=== PATIENT | female | born 1970 | race Hispanic/Latino ===

== ENCOUNTER 2024-09-18 08:26 | Day surgery (SDC) | payer BC ==
[2024-09-14 14:29] VITALS: BMI 24.7
[2024-09-18] MEDS ORDERED: Famotidine/PF 20 mg/2ml Vial ONE (10:56)
[2024-09-18] MEDS ORDERED: Heparin 5,000 UNITS/ML VIAL ONE (10:57)
[2024-09-18] MEDS ORDERED: PROPOFOL 20 ML ONE (10:58)
[2024-09-18] MEDS ORDERED: CEFAZOLIN 2 GM VIAL ONE (11:07)
[2024-09-18] MEDS ORDERED: Ondansetron PF 4 MG/2 ML Vial ONE (11:34)
[2024-09-18] MEDS ORDERED: PHENYLEPHRINE-NS 100 MCG/ML 10 ML SYRINGE ONE (11:40)
[2024-09-18] MEDS ORDERED: Heparin 10,000 UNITS/ 10 ML VIAL ONE (12:04)
[2024-09-18] MEDS ORDERED: HYDROcodone/Acetaminophen 5/325 mg Tablet ONE ×2 (14:27→15:53)
[2024-09-19] MEDS ORDERED: Calcitriol 0.25 MCG CAP PO SCH (09:00)
[2024-09-19] MEDS ORDERED: Rosuvastatin 20 MG TAB PO SCH (09:00)
[2024-09-19] MEDS ORDERED: NIFEdipine XL 60 MG ER.TAB PO SCH (09:00)
[2024-09-19] MEDS ORDERED: Insulin Glargine 30 UNITS/0.3 ML VIAL SC SCH (09:00)
== END 2024-09-18 16:05 | disposition home or self-care (01) ==
LOC: SDC 08:26
PROVIDERS: ATTEND Surgery
PROC: 03180ZD Bypass Left Brachial Artery to Upper Arm Vein, Open Approach (ICD-10-PCS; principal; 2024-09-18)
DX: E11.22 Type 2 diabetes mellitus with diabetic chronic kidney disease (principal); N18.6 End stage renal disease; Z99.2 Dependence on renal dialysis
CPT/HCPCS: 36416; A6258; C1713; J1308; J1644; J2405; J2704; J2720; J3010; J3373

== ENCOUNTER 2024-10-14 05:00 | Inpatient (IN) | payer BC, SELFPAY ==
[2024-10-14 05:27] LABS: Actual Bicarbonate (HCO3v) 25.3 mEq/L (22-28); Base Excess 0.1 mEq/L (-2.0 to +3.0); Calcium, Ionized (venous) 1.03 mmol/L (1.16-1.32); Chloride (VBG) 91 mmol/L (98-106); Hematocrit-VBG 32 % (36.0-47.0); Hemoglobin (Hb) 10.8 g/dL (11.7-16.0); Potassium (VBG) 4.66 mmol/L (3.70-5.30); Sodium 128 mmol/L (133-146)
[2024-10-14] MEDS ORDERED: Cefepime 2 GM VIAL ONE (05:28)
[2024-10-14 05:31] LABS: #Basophils 0.08 10x3/uL (0.0-0.2); #Eosinophils 0.03 10x3/uL (0.0-0.7); #Monocytes 0.66 10x3/uL (0.11-0.59); #Neutrophils 10.24 10x3/uL (1.40-6.50); %Basophils 0.6 % (0.0-1.0); %Eosinophils 0.2 % (0.0-10.0); %Lymphocytes 11.4 % (21.0-51.0); %Monocytes 5.3 % (0.0-10.0); %Neutrophils 82.0 % (42.0-75.0); Hematocrit 28.9 % (36.0-47.0); Hemoglobin 9.5 g/dL (12.0-16.0); Mean Corpuscular Hemoglobin 27.5 pg (27.0-31.0); Mean Corpuscular Volume 83.8 fL (78.0-98.0); Platelet Count 324 10x3/uL (130-400); Red Blood Cell (RBC) Count 3.45 mill/uL (4.20-5.40); White Blood Cell (WBC) Count 12.50 10x3/uL (4.8-10.8)
[2024-10-14 05:46] LABS: INR-International Normal Ratio 1.1; PTT 34.2 sec (22.9-36.1); Prothrombin Time 13.9 sec (12.0-14.7)
[2024-10-14] MEDS ORDERED: Ondansetron PF 4 MG/2 ML Vial ONE ×2 (05:56→07:10)
[2024-10-14 06:26] LABS: Osmolality, Serum 302 mOsm/kg (275-295)
[2024-10-14 06:45] LABS: ALT (SGPT) 26 U/L (Less than 34); AST (SGOT) 41 U/L (11-34); Albumin 3.6 g/dL (3.1-4.5); Alkaline Phosphatase 267 U/L (40-110); Anion Gap 16 mmol/L (10-20); BUN (Urea Nitrogen) 27 mg/dL (9.8-20.1); Bilirubin, Total 0.5 mg/dL (0.3-1.2); Calc. Creatinine Clearance 0 mL/min (70-130); Calcium 8.8 mg/dL (7.8-10.44); Carbon Dioxide 25 mmol/L (22-29); Chloride 94 mmol/L (98-107); Globulin 3.8 g/dL (2.4-3.5); Glucose 503 mg/dL (70-105); Lipase 38 U/L (8-78); Magnesium 2.0 mg/dL (1.6-2.6); Potassium 4.8 mmol/L (3.5-5.1); Sodium 130 mmol/L (136-145)
[2024-10-14 07:53] LABS: HBSAB Concentration Less than 8.00 mIU/mL; Hep B Core Total Ab NONREACTIVE (NonReactive); Hep B Core Total Index 0.10 S/CO (0-0.79); Hep B Surf Ag NONREACTIVE S/CO (NonReactive); Hep C IgG Ab NONREACTIVE S/CO (NonReactive); Hep C Index 0.14 S/CO (0-0.79)
[2024-10-14] MEDS ORDERED: Heparin 10,000 UNITS/ 10 ML VIAL ONE (08:53)
[2024-10-14] MEDS ORDERED: Iopamidol 370 76% 100 ML VIAL ONE (13:05)
[2024-10-14] MEDS ORDERED: Glucagon 1 MG/ML KIT IM PRN (13:16)
[2024-10-14] MEDS ORDERED: Dextrose 50% Abboject 50 ML SYRINGE SLOW IVP PRN (13:16)
[2024-10-14] MEDS: EPOETIN ALFA-EPBX (ESRD) 10,000 UNITS/ML VIAL SC SCH (15:58)
[2024-10-14] MEDS: Heparin 5,000 UNITS/ML VIAL SC SCH (17:00)
[2024-10-14 19:22] LABS: Magnesium 2.0 mg/dL (1.6-2.6)
[2024-10-14] MEDS: Ondansetron PF 4 MG/2 ML Vial IVP PRN (20:52)
[2024-10-14] MEDS: Famotidine 20 MG TAB PO SCH (21:48)
[2024-10-15 05:53] LABS: Hematocrit 26.0 % (36.0-47.0); Hemoglobin 8.0 g/dL (12.0-16.0); Mean Corpuscular Hemoglobin 26.9 pg (27.0-31.0); Mean Corpuscular Volume 87.5 fL (78.0-98.0); Platelet Count 303 10x3/uL (130-400); Red Blood Cell (RBC) Count 2.97 mill/uL (4.20-5.40); White Blood Cell (WBC) Count 11.04 10x3/uL (4.8-10.8)
[2024-10-15 06:17] LABS: ALT (SGPT) 17 U/L (Less than 34); AST (SGOT) 30 U/L (11-34); Albumin 2.9 g/dL (3.1-4.5); Alkaline Phosphatase 193 U/L (40-110); Anion Gap 17 mmol/L (10-20); BUN (Urea Nitrogen) 20 mg/dL (9.8-20.1); Bilirubin, Total 0.3 mg/dL (0.3-1.2); Calc. Creatinine Clearance 24 mL/min (70-130); Calcium 8.9 mg/dL (7.8-10.44); Carbon Dioxide 27 mmol/L (22-29); Chloride 98 mmol/L (98-107); Globulin 3.4 g/dL (2.4-3.5); Glucose 199 mg/dL (70-105); Macrocytosis SLIGHT = 6-15 cells HPF (0-5); Magnesium 2.2 mg/dL (1.6-2.6); Ovalocytes SLIGHT = 2-5 cells HPF (0-1); Platelet Adequacy Comment Platelets Normal; Poikilocytosis SLIGHT = 6-15 cells HPF (0-5); Polychromasia SLIGHT = 2-3 cells HPF (0-2); Potassium 4.1 mmol/L (3.5-5.1); Schistocytes SLIGHT = 2-5 cells HPF (0-1); Smudge Cells 15.0 %; Sodium 138 mmol/L (136-145)
[2024-10-15] MEDS ORDERED: Heparin 10,000 UNITS/ 10 ML VIAL ONE (11:04)
[2024-10-15] MEDS: Mupirocin 1 GM TUBE TP SCH (13:18)
[2024-10-15] MEDS: Calcitriol 0.25 MCG CAP PO SCH (13:18)
[2024-10-15] MEDS: Insulin Glargine 30 UNITS/0.3 ML VIAL SC SCH (13:18)
[2024-10-15] MEDS: NIFEdipine XL 60 MG ER.TAB PO SCH (13:19)
[2024-10-15] MEDS: Rosuvastatin 20 MG TAB PO SCH (13:19)
[2024-10-15] MEDS ORDERED: Communication Order-Pharmacy FS SCH (17:30)
[2024-10-15] MEDS: Carvedilol 6.25 MG TAB PO SCH (18:13)
[2024-10-15] MEDS: Famotidine 20 MG TAB PO SCH (20:13)
[2024-10-16 04:40] LABS: Hematocrit 26.9 % (36.0-47.0); Hemoglobin 8.5 g/dL (12.0-16.0); Mean Corpuscular Hemoglobin 27.7 pg (27.0-31.0); Mean Corpuscular Volume 87.6 fL (78.0-98.0); Platelet Count 323 10x3/uL (130-400); Red Blood Cell (RBC) Count 3.07 mill/uL (4.20-5.40); White Blood Cell (WBC) Count 10.56 10x3/uL (4.8-10.8)
[2024-10-16 05:09] LABS: Nucleated RBC (Manual Ct) 1 % (0); Platelet Adequacy Comment Platelets Normal; Polychromasia SLIGHT = 2-3 cells HPF (0-2)
[2024-10-16 05:14] LABS: ALT (SGPT) 17 U/L (Less than 34); AST (SGOT) 26 U/L (11-34); Albumin 2.9 g/dL (3.1-4.5); Alkaline Phosphatase 175 U/L (40-110); Anion Gap 6 mmol/L (10-20); BUN (Urea Nitrogen) 18 mg/dL (9.8-20.1); Bilirubin, Total 0.3 mg/dL (0.3-1.2); Calc. Creatinine Clearance 15 mL/min (70-130); Calcium 8.5 mg/dL (7.8-10.44); Carbon Dioxide 28 mmol/L (22-29); Cardiac Risk 4.0 (Less than 4.5); Chloride 105 mmol/L (98-107); Cholesterol 177 mg/dl (< 200 Desired); Globulin 3.4 g/dL (2.4-3.5); Glucose 80 mg/dL (70-105); HDL Cholesterol 44 mg/dL (>60 Neg Risk); LDL Cholesterol, Calculated 100 mg/dL; Potassium 3.8 mmol/L (3.5-5.1); Sodium 135 mmol/L (136-145); Triglycerides 163 mg/dL (Less than 150)
[2024-10-16] MEDS ORDERED: EPINEPHrine 1 MG/10 ML Abboject SYRINGE ONE (08:18)
[2024-10-16] MEDS ORDERED: hydrALAZINE 20 MG/ML VIAL ONE (08:18)
[2024-10-16] MEDS ORDERED: Adenosine 6 mg (2 mL) VIAL ONE (08:18)
[2024-10-16] MEDS ORDERED: Nitroglycerin 50 MG/250 ML BOT 0 ML ONE (08:19)
[2024-10-16] MEDS ORDERED: Lidocaine 1% (PF) 30 ML VIAL ONE (08:19)
[2024-10-16] MEDS ORDERED: PHENYLEPHRINE-NS 100 MCG/ML 10 ML SYRINGE ONE (08:19)
[2024-10-16] MEDS ORDERED: Heparin 10,000 UNITS/ 10 ML VIAL ONE (08:19)
[2024-10-16] MEDS ORDERED: Iopamidol 370 76% 100 ML VIAL ONE (15:21)
[2024-10-16] MEDS: Aspirin 81 mg Enteric Coated Tablet PO SCH (16:37)
[2024-10-16] MEDS: Rosuvastatin 10 MG TAB PO SCH (16:38)
[2024-10-16] MEDS: Communication Order-Pharmacy FS ONE (16:45)
[2024-10-16] MEDS: EPOETIN ALFA-EPBX (ESRD) 10,000 UNITS/ML VIAL SC SCH (17:31)
[2024-10-17] MEDS: Acetaminophen 325 MG TAB PO PRN (01:51)
[2024-10-17 05:24] LABS: #Basophils 0.07 10x3/uL (0.0-0.2); #Eosinophils 0.16 10x3/uL (0.0-0.7); #Monocytes 0.72 10x3/uL (0.11-0.59); #Neutrophils 4.54 10x3/uL (1.40-6.50); %Basophils 0.8 % (0.0-1.0); %Eosinophils 1.9 % (0.0-10.0); %Lymphocytes 34.2 % (21.0-51.0); %Monocytes 8.6 % (0.0-10.0); %Neutrophils 54.0 % (42.0-75.0); Hematocrit 23.9 % (36.0-47.0); Hemoglobin 7.6 g/dL (12.0-16.0); Mean Corpuscular Hemoglobin 27.4 pg (27.0-31.0); Mean Corpuscular Volume 86.3 fL (78.0-98.0); Platelet Count 320 10x3/uL (130-400); Red Blood Cell (RBC) Count 2.77 mill/uL (4.20-5.40); White Blood Cell (WBC) Count 8.41 10x3/uL (4.8-10.8)
[2024-10-17 05:50] LABS: ALT (SGPT) 14 U/L (Less than 34); AST (SGOT) 21 U/L (11-34); Albumin 2.6 g/dL (3.1-4.5); Alkaline Phosphatase 142 U/L (40-110); Anion Gap 14 mmol/L (10-20); BUN (Urea Nitrogen) 29 mg/dL (9.8-20.1); Bilirubin, Total 0.2 mg/dL (0.3-1.2); Calc. Creatinine Clearance 10 mL/min (70-130); Calcium 8.1 mg/dL (7.8-10.44); Carbon Dioxide 25 mmol/L (22-29); Chloride 95 mmol/L (98-107); Globulin 3.2 g/dL (2.4-3.5); Glucose 111 mg/dL (70-105); Potassium 3.9 mmol/L (3.5-5.1); Sodium 130 mmol/L (136-145)
[2024-10-17 09:00] LABS: Iron 40 ug/dL (50-170); Iron Binding Capacity, Total 186 mcg/dL (265-497)
[2024-10-17] MEDS: Insulin Glargine 30 UNITS/0.3 ML VIAL SC SCH (09:51)
[2024-10-17] MEDS ORDERED: Heparin 10,000 UNITS/ 10 ML VIAL ONE (11:07)
[2024-10-17] MEDS: Carvedilol 6.25 MG TAB PO SCH (16:36)
[2024-10-18 05:28] LABS: #Basophils 0.08 10x3/uL (0.0-0.2); #Eosinophils 0.22 10x3/uL (0.0-0.7); #Monocytes 0.70 10x3/uL (0.11-0.59); #Neutrophils 4.20 10x3/uL (1.40-6.50); %Basophils 1.0 % (0.0-1.0); %Eosinophils 2.7 % (0.0-10.0); %Lymphocytes 35.7 % (21.0-51.0); %Monocytes 8.6 % (0.0-10.0); %Neutrophils 51.5 % (42.0-75.0); Hematocrit 36.3 % (36.0-47.0); Hemoglobin 11.7 g/dL (12.0-16.0); Mean Corpuscular Hemoglobin 27.9 pg (27.0-31.0); Mean Corpuscular Volume 86.4 fL (78.0-98.0); Platelet Count 301 10x3/uL (130-400); Red Blood Cell (RBC) Count 4.20 mill/uL (4.20-5.40); White Blood Cell (WBC) Count 8.15 10x3/uL (4.8-10.8)
[2024-10-18 06:15] LABS: ALT (SGPT) 13 U/L (Less than 34); AST (SGOT) 23 U/L (11-34); Albumin 3.0 g/dL (3.1-4.5); Alkaline Phosphatase 178 U/L (40-110); Anion Gap 13 mmol/L (10-20); BUN (Urea Nitrogen) 20 mg/dL (9.8-20.1); Bilirubin, Total 0.4 mg/dL (0.3-1.2); Calc. Creatinine Clearance 11 mL/min (70-130); Calcium 8.6 mg/dL (7.8-10.44); Carbon Dioxide 27 mmol/L (22-29); Chloride 95 mmol/L (98-107); Globulin 3.7 g/dL (2.4-3.5); Glucose 143 mg/dL (70-105); Magnesium 2.1 mg/dL (1.6-2.6); Potassium 3.3 mmol/L (3.5-5.1); Sodium 132 mmol/L (136-145)
[2024-10-18] MEDS: Carvedilol 6.25 MG TAB PO SCH (16:12)
[2024-10-18] MEDS: Senokot S 8.6-50 MG TAB PO PRN (17:45)
[2024-10-19] MEDS: Carvedilol 6.25 MG TAB PO SCH (05:52)
[2024-10-19 06:35] LABS: #Basophils 0.08 10x3/uL (0.0-0.2); #Eosinophils 0.27 10x3/uL (0.0-0.7); #Monocytes 0.88 10x3/uL (0.11-0.59); #Neutrophils 4.07 10x3/uL (1.40-6.50); %Basophils 1.0 % (0.0-1.0); %Eosinophils 3.5 % (0.0-10.0); %Lymphocytes 30.8 % (21.0-51.0); %Monocytes 11.3 % (0.0-10.0); %Neutrophils 52.5 % (42.0-75.0); Hematocrit 35.9 % (36.0-47.0); Hemoglobin 11.6 g/dL (12.0-16.0); Mean Corpuscular Hemoglobin 28.2 pg (27.0-31.0); Mean Corpuscular Volume 87.3 fL (78.0-98.0); Platelet Count 297 10x3/uL (130-400); Red Blood Cell (RBC) Count 4.11 mill/uL (4.20-5.40); White Blood Cell (WBC) Count 7.76 10x3/uL (4.8-10.8)
[2024-10-19 06:49] LABS: ALT (SGPT) 12 U/L (Less than 34); AST (SGOT) 23 U/L (11-34); Albumin 2.9 g/dL (3.1-4.5); Alkaline Phosphatase 147 U/L (40-110); Anion Gap 14 mmol/L (10-20); BUN (Urea Nitrogen) 33 mg/dL (9.8-20.1); Bilirubin, Total 0.4 mg/dL (0.3-1.2); Calc. Creatinine Clearance 8 mL/min (70-130); Calcium 8.9 mg/dL (7.8-10.44); Carbon Dioxide 23 mmol/L (22-29); Chloride 100 mmol/L (98-107); Globulin 3.3 g/dL (2.4-3.5); Glucose 82 mg/dL (70-105); Magnesium 2.3 mg/dL (1.6-2.6); Potassium 4.0 mmol/L (3.5-5.1); Sodium 133 mmol/L (136-145)
[2024-10-19] MEDS ORDERED: PHENYLEPHRINE-NS 100 MCG/ML 10 ML SYRINGE ONE ×2 (07:06→07:16)
[2024-10-19] MEDS ORDERED: PROPOFOL 20 ML ONE ×2 (07:14→10:58)
[2024-10-19] MEDS ORDERED: fentaNYL PF 100 MCG/2 ML SYRINGE ONE ×3 (07:14→10:58)
[2024-10-19] MEDS ORDERED: Rocuronium Bromide 10 MG/ML (10ML VIAL) ONE ×2 (07:15→09:08)
[2024-10-19] MEDS ORDERED: Lidocaine 1% PF 5 ML VIAL ONE (07:15)
[2024-10-19] MEDS ORDERED: Etomidate 40 MG (20 mL) VIAL ONE (07:16)
[2024-10-19] MEDS ORDERED: CEFAZOLIN 1 GM VIAL ONE (08:23)
[2024-10-19] MEDS ORDERED: Calcium Chloride 1 GM/10 ML Abboject SYRINGE ONE (08:25)
[2024-10-19] MEDS ORDERED: Thrombin 5000 UNITS/5 ML VIAL ONE (08:25)
[2024-10-19] MEDS ORDERED: Heparin 5,000 UNITS/ML VIAL ONE (08:25)
[2024-10-19] MEDS ORDERED: Cardioplegic Soln 1,000 ML BAG ONE (08:25)
[2024-10-19] MEDS ORDERED: Heparin 30,000 units/30 ml VIAL ONE (08:25)
[2024-10-19] MEDS ORDERED: NOREPINEPHRINE 8 MG/250 ML-D5W 250 ML ONE (10:52)
[2024-10-19] MEDS: Insulin Glargine 30 UNITS/0.3 ML VIAL SC SCH (11:15)
[2024-10-19] MEDS ORDERED: Potassium Chloride 20 MEQ (100 mL) BAG IVPB PRN (11:59)
[2024-10-19] MEDS ORDERED: Guaifenesin DM 100-10/5 ML UDCUP PO PRN (11:59)
[2024-10-19] MEDS ORDERED: Bisacodyl 10 MG SUPP PR PRN (11:59)
[2024-10-19] MEDS ORDERED: niCARdipine 25 MG in Sodium Chloride 0.9% 250 ML 250 ML IVPB PRN (11:59)
[2024-10-19] MEDS ORDERED: Albumin 5% 12.5 GM (250 mL) BOT IVPB PRN (11:59)
[2024-10-19] MEDS ORDERED: Mag-Al 1200 mg/1200 mg/30 ML UDCUP PO PRN (11:59)
[2024-10-19] MEDS ORDERED: hydrALAZINE 20 MG/ML VIAL SLOW IVP PRN (11:59)
[2024-10-19] MEDS ORDERED: NOREPINEPHRINE 8 MG/250 ML-D5W 250 ML IVPB PRN (11:59)
[2024-10-19 12:07] LABS: ALV-art Gradient 306.175 mmHg (0-20); Actual Bicarbonate (HCO3a) 21.1 mEq/L (22-28); Base Excess (BEa) -2.8 mEq/L (-2.0 to +3.0); CO2 Tension 33.3 mmHg (35.0-45.0); Calcium, Ionized (arterial) 1.09 mmol/L (1.12-1.30); Hematocrit-ABG 33 % (36.0-47.0); Hemoglobin (Hb) 11.2 g/dL (12.0-16.0); O2 Tension (PaO2), arterial 80.0 mmHg (80.0-100.0); Potassium - ABG Lab 4.57 mmol/L (3.70-5.30); Puncture Site Arterial Line; pH, Arterial 7.419 (7.35-7.45)
[2024-10-19 12:12] LABS: #Basophils 0.05 10x3/uL (0.0-0.2); #Eosinophils 0.17 10x3/uL (0.0-0.7); #Monocytes 0.69 10x3/uL (0.11-0.59); #Neutrophils 10.08 10x3/uL (1.40-6.50); %Basophils 0.4 % (0.0-1.0); %Eosinophils 1.4 % (0.0-10.0); %Lymphocytes 10.9 % (21.0-51.0); %Monocytes 5.5 % (0.0-10.0); %Neutrophils 80.8 % (42.0-75.0); Hematocrit 30.3 % (36.0-47.0); Hemoglobin 10.1 g/dL (12.0-16.0); Mean Corpuscular Hemoglobin 28.8 pg (27.0-31.0); Mean Corpuscular Volume 86.3 fL (78.0-98.0); Platelet Count 215 10x3/uL (130-400); Red Blood Cell (RBC) Count 3.51 mill/uL (4.20-5.40); White Blood Cell (WBC) Count 12.47 10x3/uL (4.8-10.8)
[2024-10-19] MEDS: Aspirin Chewable 81 MG TAB PO SCH (12:15)
[2024-10-19] MEDS ORDERED: INSULIN REGULAR IN 0.9 % NACL 100 UNITS in Premix 1 BAG IVPB SCH (12:15)
[2024-10-19] MEDS ORDERED: Dextrose 50% Abboject 50 ML SYRINGE SLOW IVP PRN (12:15)
[2024-10-19] MEDS: Acetaminophen 325 MG TAB PO SCH (12:15)
[2024-10-19] MEDS ORDERED: Glucagon 1 MG/ML KIT SC PRN (12:15)
[2024-10-19] MEDS: Albumin 5% 12.5 GM (250 mL) BOT IVPB PRN (12:15)
[2024-10-19] MEDS: Magnesium 2 GM/50 ML(in water) 2 GM in Premix 1 BAG IVPB SCH (12:17)
[2024-10-19] MEDS: Post-Op Insulin Drip Protocol IVPB ONE (12:28)
[2024-10-19 12:32] LABS: Anion Gap 17 mmol/L (10-20); BUN (Urea Nitrogen) 29 mg/dL (9.8-20.1); Calc. Creatinine Clearance 9 mL/min (70-130); Calcium 8.0 mg/dL (7.8-10.44); Carbon Dioxide 19 mmol/L (22-29); Chloride 104 mmol/L (98-107); Glucose 172 mg/dL (70-105); INR-International Normal Ratio 1.2; Potassium 4.7 mmol/L (3.5-5.1); Prothrombin Time 15.0 sec (12.0-14.7); Sodium 135 mmol/L (136-145)
[2024-10-19 12:33] LABS: PTT 40.2 sec (22.9-36.1)
[2024-10-19 16:58] LABS: Hematocrit 32.1 % (36.0-47.0); Hemoglobin 10.5 g/dL (12.0-16.0)
[2024-10-19] MEDS ORDERED: Carvedilol 6.25 MG TAB PO SCH (17:00)
[2024-10-19 17:10] LABS: Potassium 4.5 mmol/L (3.5-5.1)
[2024-10-19] MEDS: Ondansetron PF 4 MG/2 ML Vial IVP PRN (20:23)
[2024-10-19] MEDS: Famotidine/PF 20 mg/2ml Vial SLOW IVP SCH (20:23)
[2024-10-19 20:32] LABS: Actual Bicarbonate (HCO3a) 18.7 mEq/L (22-28); Base Excess (BEa) -5.5 mEq/L (-2.0 to +3.0); CO2 Tension 32.2 mmHg (35.0-45.0); Calcium, Ionized (arterial) 1.14 mmol/L (1.12-1.30); Hematocrit-ABG 35 % (36.0-47.0); Hemoglobin (Hb) 11.8 g/dL (12.0-16.0); O2 Tension (PaO2), arterial 83.8 mmHg (80.0-100.0); Potassium - ABG Lab 4.48 mmol/L (3.70-5.30); pH, Arterial 7.381 (7.35-7.45)
[2024-10-19 20:33] LABS: Puncture Site Arterial Line
[2024-10-19 20:34] LABS: ALV-art Gradient 161.150 mmHg (0-20)
[2024-10-20 04:15] LABS: #Basophils 0.04 10x3/uL (0.0-0.2); #Eosinophils Less than 0.03 10x3/uL (0.0-0.7); #Monocytes 0.99 10x3/uL (0.11-0.59); #Neutrophils 10.76 10x3/uL (1.40-6.50); %Basophils 0.3 % (0.0-1.0); %Eosinophils 0.0 % (0.0-10.0); %Lymphocytes 9.2 % (21.0-51.0); %Monocytes 7.6 % (0.0-10.0); %Neutrophils 82.1 % (42.0-75.0); Hematocrit 32.6 % (36.0-47.0); Hemoglobin 10.4 g/dL (12.0-16.0); Mean Corpuscular Hemoglobin 28.3 pg (27.0-31.0); Mean Corpuscular Volume 88.8 fL (78.0-98.0); Platelet Count 247 10x3/uL (130-400); Red Blood Cell (RBC) Count 3.67 mill/uL (4.20-5.40); White Blood Cell (WBC) Count 13.10 10x3/uL (4.8-10.8)
[2024-10-20 04:44] LABS: ALT (SGPT) 7 U/L (Less than 34); AST (SGOT) 36 U/L (11-34); Albumin 3.0 g/dL (3.1-4.5); Alkaline Phosphatase 105 U/L (40-110); Anion Gap 20 mmol/L (10-20); BUN (Urea Nitrogen) 35 mg/dL (9.8-20.1); Bilirubin, Total 0.2 mg/dL (0.3-1.2); Calc. Creatinine Clearance 8 mL/min (70-130); Calcium 8.3 mg/dL (7.8-10.44); Carbon Dioxide 19 mmol/L (22-29); Chloride 104 mmol/L (98-107); Globulin 2.6 g/dL (2.4-3.5); Glucose 117 mg/dL (70-105); Magnesium 3.7 mg/dL (1.6-2.6); Potassium 5.5 mmol/L (3.5-5.1); Sodium 137 mmol/L (136-145)
[2024-10-20] MEDS: Aspirin 325 MG TAB PO SCH (07:41)
[2024-10-20] MEDS: HYDROcodone/Acetaminophen 5/325 mg Tablet PO PRN ×2 (07:41→16:46)
[2024-10-20] MEDS: Magnesium 2 GM/50 ML(in water) 2 GM in Premix 1 BAG IVPB SCH (09:24)
[2024-10-20] MEDS ORDERED: Heparin 10,000 UNITS/ 10 ML VIAL ONE (09:46)
[2024-10-20] MEDS ORDERED: Insulin Glargine 30 UNITS/0.3 ML VIAL SC PRN (12:14)
[2024-10-20] MEDS: Albumin 5% 12.5 GM (250 mL) BOT IVPB SCH ×3 (14:51→21:25)
[2024-10-20] MEDS: Heparin 5,000 UNITS/ML VIAL SC SCH (16:08)
[2024-10-20] MEDS ORDERED: NOREPINEPHRINE 8 MG/250 ML-D5W 250 ML IVPB SCH (22:15)
[2024-10-21 04:05] LABS: #Basophils 0.07 10x3/uL (0.0-0.2); #Eosinophils 0.04 10x3/uL (0.0-0.7); #Monocytes 1.77 10x3/uL (0.11-0.59); #Neutrophils 10.95 10x3/uL (1.40-6.50); %Basophils 0.5 % (0.0-1.0); %Eosinophils 0.3 % (0.0-10.0); %Lymphocytes 10.3 % (21.0-51.0); %Monocytes 12.3 % (0.0-10.0); %Neutrophils 76.1 % (42.0-75.0); Hematocrit 29.5 % (36.0-47.0); Hemoglobin 9.1 g/dL (12.0-16.0); Mean Corpuscular Hemoglobin 28.2 pg (27.0-31.0); Mean Corpuscular Volume 91.3 fL (78.0-98.0); Platelet Count 223 10x3/uL (130-400); Red Blood Cell (RBC) Count 3.23 mill/uL (4.20-5.40); White Blood Cell (WBC) Count 14.38 10x3/uL (4.8-10.8)
[2024-10-21 04:38] LABS: ALT (SGPT) Less than 7 U/L (Less than 34); AST (SGOT) 45 U/L (11-34); Albumin 3.4 g/dL (3.1-4.5); Alkaline Phosphatase 195 U/L (40-110); Anion Gap 17 mmol/L (10-20); BUN (Urea Nitrogen) 24 mg/dL (9.8-20.1); Bilirubin, Total 0.4 mg/dL (0.3-1.2); Calc. Creatinine Clearance 12 mL/min (70-130); Calcium 8.4 mg/dL (7.8-10.44); Carbon Dioxide 25 mmol/L (22-29); Chloride 101 mmol/L (98-107); Globulin 2.4 g/dL (2.4-3.5); Glucose 148 mg/dL (70-105); Magnesium 2.7 mg/dL (1.6-2.6); Potassium 4.4 mmol/L (3.5-5.1); Sodium 139 mmol/L (136-145)
[2024-10-21 05:06] VITALS: BMI 21.8
[2024-10-21] MEDS: Acetaminophen 500 MG TAB PO SCH (12:12)
[2024-10-21] MEDS: Senokot S 8.6-50 MG TAB PO SCH (12:13)
[2024-10-21] MEDS: EPOETIN ALFA-EPBX (ESRD) 10,000 UNITS/ML VIAL SC SCH (15:21)
[2024-10-22 04:13] LABS: #Basophils 0.06 10x3/uL (0.0-0.2); #Eosinophils 0.03 10x3/uL (0.0-0.7); #Monocytes 1.20 10x3/uL (0.11-0.59); #Neutrophils 9.91 10x3/uL (1.40-6.50); %Basophils 0.5 % (0.0-1.0); %Eosinophils 0.2 % (0.0-10.0); %Lymphocytes 14.8 % (21.0-51.0); %Monocytes 9.1 % (0.0-10.0); %Neutrophils 74.9 % (42.0-75.0); Hematocrit 28.2 % (36.0-47.0); Hemoglobin 8.6 g/dL (12.0-16.0); Mean Corpuscular Hemoglobin 27.9 pg (27.0-31.0); Mean Corpuscular Volume 91.6 fL (78.0-98.0); Platelet Count 215 10x3/uL (130-400); Red Blood Cell (RBC) Count 3.08 mill/uL (4.20-5.40); White Blood Cell (WBC) Count 13.21 10x3/uL (4.8-10.8)
[2024-10-22 04:33] LABS: ALT (SGPT) 8 U/L (Less than 34); AST (SGOT) 59 U/L (11-34); Albumin 2.8 g/dL (3.1-4.5); Alkaline Phosphatase 222 U/L (40-110); Anion Gap 17 mmol/L (10-20); BUN (Urea Nitrogen) 42 mg/dL (9.8-20.1); Bilirubin, Total 0.3 mg/dL (0.3-1.2); Calc. Creatinine Clearance 9 mL/min (70-130); Calcium 8.3 mg/dL (7.8-10.44); Carbon Dioxide 23 mmol/L (22-29); Chloride 98 mmol/L (98-107); Globulin 2.9 g/dL (2.4-3.5); Glucose 117 mg/dL (70-105); Magnesium 2.8 mg/dL (1.6-2.6); Potassium 4.9 mmol/L (3.5-5.1); Sodium 133 mmol/L (136-145)
[2024-10-22] MEDS ORDERED: Heparin 10,000 UNITS/ 10 ML VIAL ONE (09:04)
[2024-10-22 13:39] VITALS: BMI 22.4
[2024-10-22] MEDS ORDERED: Insulin Glargine 30 UNITS/0.3 ML VIAL SC SCH (21:00)
[2024-10-22] MEDS: Insulin Glargine 30 UNITS/0.3 ML VIAL SC SCH (21:55)
[2024-10-22] MEDS: Famotidine 20 MG TAB PO SCH (21:56)
[2024-10-23 03:40] LABS: #Basophils 0.08 10x3/uL (0.0-0.2); #Eosinophils 0.18 10x3/uL (0.0-0.7); #Monocytes 1.05 10x3/uL (0.11-0.59); #Neutrophils 6.57 10x3/uL (1.40-6.50); %Basophils 0.8 % (0.0-1.0); %Eosinophils 1.7 % (0.0-10.0); %Lymphocytes 25.0 % (21.0-51.0); %Monocytes 9.9 % (0.0-10.0); %Neutrophils 61.9 % (42.0-75.0); Hematocrit 29.2 % (36.0-47.0); Hemoglobin 9.1 g/dL (12.0-16.0); Mean Corpuscular Hemoglobin 28.3 pg (27.0-31.0); Mean Corpuscular Volume 91.0 fL (78.0-98.0); Platelet Count 271 10x3/uL (130-400); Red Blood Cell (RBC) Count 3.21 mill/uL (4.20-5.40); White Blood Cell (WBC) Count 10.60 10x3/uL (4.8-10.8)
[2024-10-23 03:55] LABS: ALT (SGPT) 8 U/L (Less than 34); AST (SGOT) 53 U/L (11-34); Albumin 2.9 g/dL (3.1-4.5); Alkaline Phosphatase 228 U/L (40-110); Anion Gap 14 mmol/L (10-20); BUN (Urea Nitrogen) 22 mg/dL (9.8-20.1); Bilirubin, Total 0.3 mg/dL (0.3-1.2); Calc. Creatinine Clearance 13 mL/min (70-130); Calcium 8.4 mg/dL (7.8-10.44); Carbon Dioxide 26 mmol/L (22-29); Chloride 100 mmol/L (98-107); Globulin 3.1 g/dL (2.4-3.5); Glucose 89 mg/dL (70-105); Magnesium 2.4 mg/dL (1.6-2.6); Potassium 3.9 mmol/L (3.5-5.1); Sodium 136 mmol/L (136-145)
[2024-10-23] MEDS: Mupirocin 1 GM TUBE TP SCH (21:05)
[2024-10-23] MEDS: Insulin Glargine 30 UNITS/0.3 ML VIAL SC SCH (21:05)
[2024-10-24 04:37] LABS: ALT (SGPT) Less than 7 U/L (Less than 34); AST (SGOT) 40 U/L (11-34); Albumin 2.7 g/dL (3.1-4.5); Alkaline Phosphatase 251 U/L (40-110); Anion Gap 16 mmol/L (10-20); BUN (Urea Nitrogen) 35 mg/dL (9.8-20.1); Bilirubin, Total 0.3 mg/dL (0.3-1.2); Calc. Creatinine Clearance 9 mL/min (70-130); Calcium 8.5 mg/dL (7.8-10.44); Carbon Dioxide 24 mmol/L (22-29); Chloride 97 mmol/L (98-107); Globulin 3.3 g/dL (2.4-3.5); Glucose 130 mg/dL (70-105); Magnesium 2.8 mg/dL (1.6-2.6); Potassium 3.8 mmol/L (3.5-5.1); Sodium 133 mmol/L (136-145)
[2024-10-24] MEDS ORDERED: Heparin 10,000 UNITS/ 10 ML VIAL ONE (10:35)
[2024-10-24] MEDS: Lisinopril 2.5 MG TAB PO SCH (12:08)
[2024-10-24 15:51] VITALS: BP 136/74; TEMP 98.2
== END 2024-10-24 15:51 | disposition home or self-care (01) | DRG 233 ==
LOC: ERS 05:00 → ERHOLD 08:24 → 2NO 16:15 → CCU 10-19 09:55 → PCU 10-22 15:37
PROVIDERS: ADMIT Family Medicine; ATTEND Hospitalist
PROC: 4A133R1 Monitoring of Arterial Saturation, Peripheral, Percutaneous Approach (ICD-10-PCS; 2024-10-14)
PROC: 5A1D70Z Performance of Urinary Filtration, Intermittent, Less than 6 Hours Per Day (ICD-10-PCS; 2024-10-14)
PROC: 5A1D70Z Performance of Urinary Filtration, Intermittent, Less than 6 Hours Per Day (ICD-10-PCS; 2024-10-15)
PROC: 4A023N7 Measurement of Cardiac Sampling and Pressure, Left Heart, Percutaneous Approach (ICD-10-PCS; 2024-10-16)
PROC: B2151ZZ Fluoroscopy of Left Heart using Low Osmolar Contrast (ICD-10-PCS; 2024-10-16)
PROC: B2111ZZ Fluoroscopy of Multiple Coronary Arteries using Low Osmolar Contrast (ICD-10-PCS; 2024-10-16)
PROC: 3E033XZ Introduction of Vasopressor into Peripheral Vein, Percutaneous Approach (ICD-10-PCS; 2024-10-16)
PROC: 30233N1 Transfusion of Nonautologous Red Blood Cells into Peripheral Vein, Percutaneous Approach (ICD-10-PCS; 2024-10-17)
PROC: 02100Z9 Bypass Coronary Artery, One Artery from Left Internal Mammary, Open Approach (ICD-10-PCS; principal; 2024-10-19)
PROC: 021109W Bypass Coronary Artery, Two Arteries from Aorta with Autologous Venous Tissue, Open Approach (ICD-10-PCS; 2024-10-19)
PROC: 06BQ4ZZ Excision of Left Saphenous Vein, Percutaneous Endoscopic Approach (ICD-10-PCS; 2024-10-19)
PROC: 0PQ00ZZ Repair Sternum, Open Approach (ICD-10-PCS; 2024-10-19)
PROC: 5A1221Z Performance of Cardiac Output, Continuous (ICD-10-PCS; 2024-10-19)
PROC: 02L70CK Occlusion of Left Atrial Appendage with Extraluminal Device, Open Approach (ICD-10-PCS; 2024-10-19)
PROC: 30233J1 Transfusion of Nonautologous Serum Albumin into Peripheral Vein, Percutaneous Approach (ICD-10-PCS; 2024-10-19)
PROC: 5A1935Z Respiratory Ventilation, Less than 24 Consecutive Hours (ICD-10-PCS; 2024-10-19)
PROC: 0BH17EZ Insertion of Endotracheal Airway into Trachea, Via Natural or Artificial Opening (ICD-10-PCS; 2024-10-19)
DX: I13.2 Hypertensive heart and chronic kidney disease with heart failure and with stage 5 chronic kidney disease, or end stage renal disease (principal); I21.A1 Myocardial infarction type 2; J96.01 Acute respiratory failure with hypoxia; N18.6 End stage renal disease; I50.43 Acute on chronic combined systolic (congestive) and diastolic (congestive) heart failure; E87.1 Hypo-osmolality and hyponatremia; E87.70 Fluid overload, unspecified; D63.1 Anemia in chronic kidney disease; R74.01 Elevation of levels of liver transaminase levels; E11.65 Type 2 diabetes mellitus with hyperglycemia; E11.22 Type 2 diabetes mellitus with diabetic chronic kidney disease; E03.9 Hypothyroidism, unspecified; I95.9 Hypotension, unspecified; E78.5 Hyperlipidemia, unspecified; I25.10 Atherosclerotic heart disease of native coronary artery without angina pectoris; Z98.890 Other specified postprocedural states; Z83.3 Family history of diabetes mellitus; Z82.49 Family history of ischemic heart disease and other diseases of the circulatory system; Z79.899 Other long term (current) drug therapy
CPT/HCPCS: 36415; 36416; 36430; 71045; 71275; 74177; 80053; 80061; 82010; 82728; 82805; 83036; 83540; 83550; 83605; 83690; 83735; 83930; 84100; 84443; 84484; 85025; 85347; 85610; 85730; 86704; 86706; 86803; 86850; 86900; 86901; 87040; 87340; 90935; 92978; 93005; 93010; 93306; 93458; 93798; 94002; 94640; 94660; 96365; 96375; 96376; 97139; 99152; 99153; A4311; C1751; C1753; C1760; C1769; C1887; C1889; G0257; J0153; J0165; J0169; J0360; J0461; J0665; J0690; J0692; J1100; J1308; J1644; J1815; J2250; J2270; J2405; J2440; J2550; J2704; J2720; J3010; J3373; J3475; J7030; J7050; J7614; P9016; P9045; Q5105; Q9967; S0017